=== PATIENT | male | born 1985 | race Caucasian/White ===

== ENCOUNTER 2019-05-18 16:43 | Emergency (ER) | payer SELFPAY ==
[2019-05-18 16:50] VITALS: BP 160/110; PULSE 106; RESP 16; TEMP 37.1; O2SAT 95; BMI 40.0
--- NOTE | 2019-05-18 17:01 | ED_ITS ---
HPI - Skin/Abscess/Foreign Bdy General: Chief complaint: Skin/Abscess/Foreign Body Stated complaint: knot on neck Time Seen by Provider: 05/18/19 16:55 History of Present Illness: HPI narrative: 33 yo female presents with a abscess inferior aspect of the occiput on the left is been there for over a week his had been manipulating and some continues to grow in size and tenderness I have gotten some drainage from it he denies any fever sweats or chills MD complaint: abscess/boil Associated symptoms: Deny chills, fever(s), nausea or vomiting Review of Systems Const: Denies: fever, chills, body aches, change in appetite, fatigue or malaise ENMT: Denies: throat pain, ear pain, nasal discharge or nasal congestion Card: Denies: chest pain, edema, shortness of breath on exertion or shortness of breath when lying down Resp: Denies: shortness of breath, productive cough or non-productive cough GI: Denies: abdominal pain, nausea, vomiting, vomiting blood, coffee grounds in vomit, diarrhea, constipation, bloating, blood in stool or black tarry stool : Denies: flank pain, painful urination, urinary frequency or urinary urgency Skin/Breast: Denies: rash or itching PFSH ED PFSH: Social History Smoking and tobacco status: current every day smoker Physical Exam Const: COMMON NORMALS: no apparent distress GENERAL APPEARANCE: cooperative and comfortable ORIENTATION/CONSCIOUSNESS: Yes awake, Yes oriented to person, Yes oriented to place and Yes oriented to time HENMT: COMMON NORMALS: normocephalic, head/scalp atraumatic, hearing grossly normal bilaterally, external ears normal, EAC's normal, TM's normal bilaterally, nasal mucous membranes and turbinates normal, moist oral mucous membranes and oropharynx normal HEAD & SCALP: normocephalic and atraumatic NOSE: nasal mucous membranes and turbinates normal EXTERNAL EAR: Yes external ears normal EXTERNAL AUDITORY CANAL: EAC's normal TYMPANIC MEMBRANE: TM's normal bilaterally Eye: COMMON NORMALS: PERRL, EOMs intact bilaterally, conjunctivae normal and no scleral icterus CONJUNCTIVA: Yes conjunctivae normal PUPIL: Yes PERRL Neck/C-Spine: COMMON NORMALS: full ROM, no lymphadenopathy, supple and no JVD Lymph: LYMPHATIC: no lymphadenopathy noted and no lymphedema noted Resp: COMMON NORMALS: normal respiratory effort, no retractions, no use of accessory muscles and clear to auscultation bilaterally AUSCULTATION: clear to auscultation bilaterally Cardio: COMMON NORMALS: no JVD, regular rate, regular rhythm and no murmurs RATE: regular rate RHYTHM: regular rhythm GI: COMMON NORMALS: soft to palpation and no hepatosplenomegaly AUSCULTATION: Yes normoactive bowel sounds PALPATION: Yes soft, No tender, No guarding and Yes no hepatosplenomegaly Extremity: COMMON NORMALS: normal to inspection, normal capillary refill, no clubbing, cyanosis or edema, no calf tenderness and no pedal edema Neuro: SENSORIUM/ORIENTATION: Yes oriented to person, Yes oriented to place and Yes oriented to time Skin: OTHER: Tender abscess at the base of the occiput on the left. No pointing no drainage Procedures Abscess I/D Site: scalp Side (if applicable): left Local Anesthetic: lidocaine 1% and with epi Amount of anesthesia used (mL): 2 Technique: incised with #11 blade Amount of fluid expressed (mL): 3 Irrigation: No Packing used?: none Course Vital Signs: Vital signs: Vital Signs Temperature 98.7 F 05/18/19 16:50 Pulse Rate 95 05/18/19 17:55 Respiratory Rate 14 05/18/19 17:55 Blood Pressure 134/80 05/18/19 17:55 Pulse Oximetry 100 05/18/19 17:55 MDM - Skin/Abscess/Foreign Bdy MDM Narrative: Medical decision making narrative: Wound anesthetized incised and drained was able to get moderate amount of fluid from it there was some septations within the abscess which were broken up with a cotton swab and increase the drainage a bit wound care instructions given started on Bactrim follow-up as needed Discharge Plan Discharge Patient Disposition: Home, Self-Care Clinical Impression: Abscess Condition: Stable Prescriptions: New Bactrim DS 800-160 mg tablet 1 tab PO BID 7 Days Qty: 14 RF: 0 No Action ibuprofen 800 mg Tablet 800 mg PO Q6H PRN (Reason: Pain) RF: 0 Discharge Orders: Discharge Order (Routine); Ordered 05/18/19 Ordered By: Holger Up Discharge Diet: Usual diet Discharge Activity: Resume usual activity Patient Instructions: Abscess Incision and Drainage (ED) Activity Restrictions/Additional Instructions: Return if worsens or have further problems Discharge Date/Time: 05/18/19 18:05 Coding Level of Care Code ED [employer] for Osvaldo Liu
[2019-05-18] MEDS: neomycin-poly-bacitracin oint 0.9 gm Pkt 1 APPLIC TOPICAL (17:54)
[2019-05-18 17:55] VITALS: BP 134/80; PULSE 95; RESP 14; O2SAT 100
== END 2019-05-18 18:05 | disposition home or self-care (01) ==
PROVIDERS: Emergency Provider Family Medicine
DX: L02.811 Cutaneous abscess of head [any part, except face] (principal); F17.200 Nicotine dependence, unspecified, uncomplicated
CPT/HCPCS: 10060; 12345; 99281; 99282

== ENCOUNTER 2019-05-22 10:58 | Emergency (ER) | payer SELFPAY ==
[2019-05-22 11:14] VITALS: BP 143/89; PULSE 90; RESP 18; TEMP 36.8; O2SAT 96; BMI 38.9
--- NOTE | 2019-05-22 11:36 | ED_ITS ---
HPI - Male Genitourinary General: Chief complaint: Urogenital-Male Stated complaint: Genital pain Time Seen by Provider: 05/22/19 11:17 Source: patient Mode of arrival: ambulatory Limitations: no limitations History of Present Illness: HPI Narrative: Patient is a very nice 33-year-old male who presents to ED today with complaints of a genital herpes outbreak. He began noticing the rash a few days ago. Patient has recently been treated for an abscess with antibiotics. Patient does have a history of genital herpes. Reports he had a few leftover acyclovir that he has been taking and has already noticed a difference however is out of this medication now. He states rash started with fluid-filled vesicles that have now ruptured and ulcerated. States he is extremely uncomfortable due to the pain. MD Complaint: other (HSV outbreak) Onset (ago): day(s) Duration: constant Location: penis, right testicle and left testicle Quality: burning Relieving factors: none Context: new medication (abx for abscess) Associated symptoms: Reports no associated symptoms; Deny dysuria, nausea or vomiting Related Data: Sexually active: Yes (monogamous with ) Review of Systems General: Reports: 10 or more systems reviewed and unremarkable except in HPI and below Const: Denies: fever, chills, body aches, fatigue or malaise ENMT: Denies: throat pain, enlarged tonsils, painful swallowing or oral sores/lesions Resp: Denies: shortness of breath, productive cough, non-productive cough or chest congestion GI: Denies: abdominal pain, nausea, vomiting or diarrhea : Reports: other (rash to genitalia ); Denies: flank pain, difficulty urinating, painful urination, urinary frequency, urinary urgency or urinary hesitancy Musc: Denies: neck pain or back pain Skin/Breast: Reports: rash Neuro: Denies: headache, numbness in extremities, weakness in extremities or changes in sensation PFSH ED PFSH: Social History Smoking and tobacco status: current every day smoker Physical Exam Const: COMMON NORMALS: no apparent distress, oriented x3, no limitations and alert NUTRITIONAL APPEARANCE: obese : OTHER: pt has multiple ruptured vesicles with ulcerations and edema around glans, coronal sulcus, and penile shaft Neuro: COMMON NORMALS: oriented x3 SENSORIUM/ORIENTATION: Yes alert Skin: OTHER: see assessment Course Vital Signs: Vital signs: Vital Signs Temperature 98.2 F 05/22/19 11:14 Pulse Rate 90 05/22/19 11:14 Respiratory Rate 18 05/22/19 11:14 Blood Pressure 143/89 05/22/19 11:14 Pulse Oximetry 96 05/22/19 11:14 Discharge Plan Discharge Patient Disposition: Home, Self-Care Clinical Impression: Genital herpes in men Condition: Stable Prescriptions: New Valtrex 1 gram tablet 1,000 mg PO DAILY 5 Days Qty: 5 RF: 2 tramadol 50 mg tablet 50 mg PO Q6H PRN (Reason: pain) Qty: 14 RF: 0 No Action ibuprofen 800 mg Tablet 800 mg PO Q6H PRN (Reason: Pain) RF: 0 Bactrim DS 800-160 mg tablet 1 tab PO BID 7 Days Qty: 14 RF: 0 Discharge Orders: Discharge Order (Routine); Ordered 05/22/19 Ordered By: Monique Bingham Discharge Diet: Usual diet Discharge Activity: Increase activity as tolerated Patient Instructions: Genital Herpes - Male Coding Level of Care Code ED [employer] for Osvaldo Liu
== END 2019-05-22 11:59 | disposition home or self-care (01) ==
LOC: ER 14:50
PROVIDERS: Emergency Provider Physician Assistant
DX: A60.00 Herpesviral infection of urogenital system, unspecified (principal); F17.200 Nicotine dependence, unspecified, uncomplicated
CPT/HCPCS: 12345; 99281

== ENCOUNTER → 2020-09-11 09:31 | Outpatient (BNVA) | payer MEDICAID, SELFPAY | PROVIDERS: PCP Family Medicine; Visit Provider Nurse Practitioner Family | DX: R05 Cough (principal); Z20.822 Contact with and (suspected) exposure to COVID-19; A60.02 Herpesviral infection of other male genital organs | CPT/HCPCS: 87635 ==

== ENCOUNTER 2020-11-12 08:33 | Outpatient (CLI) | payer MEDICAID, SELFPAY ==
--- NOTE | 2020-11-12 09:30 | US_ITS ---
WS: [id number] RIGHT UPPER QUADRANT ULTRASOUND HISTORY: R10.11 - Right upper quadrant pain COMPARISON: None available. Liver: 15.6 cm in length. Normal size liver with coarse echotexture throughout. Obscuration of the po rtal triads and veins. No mass or bile duct dilatation. Gallbladder: Normally distended gallbladder with no stones or wall thickening. CBD: 0.3 cm Pancreas: Poorly visualized. Tail and head are obscured by bowel gas. Right kidney: 12.6 cm in length. Normal size and echogenicity. No hydronephrosis or mass. Aorta and IVC: Unremarkable abdominal aorta and IVC. No ascites. US/US gall bladder [id number] IMPRESSION: 1. Normal gallbladder. 2. Normal size liver with moderate hepatic steatosis.
== END 2020-11-12 08:34 | disposition home or self-care (01) ==
LOC: US 08:36
PROVIDERS: PCP Family Medicine; Visit Provider Surgery
DX: R10.11 Right upper quadrant pain (principal); K83.1 Obstruction of bile duct
CPT/HCPCS: 76705

== ENCOUNTER 2020-11-20 05:22 | Day surgery (SDC) | payer MEDICAID, SELFPAY ==
[2020-11-15 12:03] VITALS: BMI 38.5
[2020-11-20 06:12] VITALS: BP 125/78; PULSE 95; RESP 18; TEMP 36.3; O2SAT 96
[2020-11-20] MEDS: sodium chloride 0.9% 1,000 ML 30 ML IV (06:23)
--- NOTE | 2020-11-20 06:23 | W.PM.OPSUD ---
Surgery/Procedure H&P Update DATE OF PROCEDURE: November 20, 2020 DATE H&P PERFORMED: 11/13/20 H&P UPDATE INFORMATION: I have reviewed H&P completed within last 30 days, I have examined patient prior to procedure and Changes to prior documentation as noted here CHANGES TO PREVIOUS DOCUMENTATION: Patient was reeducated about the importance to obtain a HIDA scan and also a small bowel follow-through has been ordered. PREOP DIAGNOSIS: Abdominal pain PRIMARY INDICATION FOR PROCEDURE: The same PLANNED PROCEDURE: Operation Date: 11/20/20 07:00 Proposed Procedures p EGD/Colon 84088 K21.9(Not Applicable) - Jose Theodore MD s Colonoscopy 21970 R10.9(Not Applicable) - Jose Theodore MD
--- NOTE | 2020-11-20 06:42 | ANES.PREANE2 ---
Pre-Anesthetic Assessment Pre-Anesthetic Assessment: Height/Weight: Height 1.85 m Weight 132.449 kg Temp Pulse Resp BP Pulse Ox 97.3 F L 95 18 125/78 96 11/20/20 06:12 11/20/20 06:12 11/20/20 06:12 11/20/20 06:12 11/20/20 06:12 Preop Diagnosis: Abdominal pain Proposed Procedure: Operation Date: 11/20/20 07:00 Proposed Procedures p EGD/Colon 85847 K21.9(Not Applicable) - Jose Theodore MD s Colonoscopy 67281 R10.9(Not Applicable) - Jose Theodore MD Familial anesthetic complications: none Was Beta Renu taken within 24 hours: N/A Was Clonidine taken within 24 hours: N/A Last intake: Intake Last Liquid Date 11/19/20 Last Liquid Time 22:00 Last Solid Date 11/18/20 Last Solid Time 19:00 Social: Social History: Alcohol (rare) and Tobacco Exam: Pre-Anes Outpt Exam: alert, No oriented x 3 and No clear to auscultation bilaterally Airway: Submandibular: WNL Cervical ROM: WNL MP: 2 Dentition: Full History/ROS: No significant history except as noted Pulmonary: Pulmonary: None reported CV/HEM: CV/HEM: None reported : : None reported Hepatic: Hepatic: Hepatitis GI: GI: GERD Metabolic: Metabolic: Hyperlipidemia Musc/skel: Musc/skel: None reported Neuropsych: Neuropsych: Anxiety, Depression and TIA Anesthetic Plan: ASA status: 3 Anesthesia: Anesthesia Evaluation and MAC Risk of > 500 ml blood loss (7ml/kg in children): No Meds/Allergies Current Medications: Current Medications Generic Name Dose Route Start Last Admin Trade Name Freq PRN Reason Stop Dose Admin Sodium Chloride 1,000 mls @ 30 ml s/hr 11/20/20 06:15 11/20/20 06:23 Sodium Chloride 0.9% IV 11/21/20 06:14 30 mls/hr .Q24H KIA Administration PFSH Anesthesia PFSH: Medical History Genital herpes in men Hepatitis C Data Anesthesia Cardiac Studies: No Data to Display
[2020-11-20 07:20] VITALS: BP 102/75; PULSE 92; RESP 18; TEMP 36.5; O2SAT 90
[2020-11-20 07:32] VITALS: BP 103/78; PULSE 84; RESP 18; TEMP 36.3; O2SAT 94
[2020-11-20 07:43] VITALS: BP 125/83; PULSE 85; RESP 18; O2SAT 94
--- NOTE | 2020-11-20 08:01 | ANE.PACU2 ---
Inpatient post-anesthesia follow up: Airway intact: Yes Vital signs: Temperature 97.3 F Pulse Rate 85 Respiratory Rate 18 Blood Pressure 125/83 Pulse Oximetry 94 Oxygen Delivery Me thod Room Air Oxygen Flow Rate 4 Fraction of Inspir ed Oxygen Hydration adequate: Yes Nausea and vomiting: No Mental status: Baseline
[2020-11-21 05:52] LABS: H. Pylori / CLO Test Negative
== END 2020-11-20 08:03 | disposition home or self-care (01) ==
PROVIDERS: PCP Nurse Practitioner Family; Visit Provider Surgery
PROC: 0DJ08ZZ Inspection of Upper Intestinal Tract, Via Natural or Artificial Opening Endoscopic (ICD-10-PCS; CPT 43235; principal; 2020-11-20 07:00)
PROC: 0DJD8ZZ Inspection of Lower Intestinal Tract, Via Natural or Artificial Opening Endoscopic (ICD-10-PCS; CPT 45378; 2020-11-20 07:00)
DX: R10.9 Unspecified abdominal pain (principal); K21.00 Gastro-esophageal reflux disease with esophagitis, without bleeding; K29.70 Gastritis, unspecified, without bleeding; Z86.19 Personal history of other infectious and parasitic diseases
CPT/HCPCS: 43239; 45378; 82274; 83630; 87077; 87493; 87506; 88305; 96360; J2704; J7030

== ENCOUNTER 2020-12-04 06:31 | Outpatient (CLI) | payer MEDICAID, SELFPAY ==
--- NOTE | 2020-12-04 08:00 | NM_ITS ---
WS: [id number] NUCLEAR MEDICINE HIDA SCAN CLINICAL INFORMATION: R10.9 - Unspecified abdominal pain TECHNIQUE: Following intravenous administration of 4.9 mCi of technetium 99m mebrofenin, images of th e abdomen were obtained over the course of 60 minutes. Next, gallbladder ejection fraction was determ ined by obtaining preprandial and one-hour postprandial images of the gallbladder following oral sangeeta stion of Ensure. FINDINGS: Normal hepatic uptake at 5 minutes. Hepatomegaly. Gallbladder is visualized by 10 minutes. No evidenc e of acute cholecystitis. Normal small bowel activity. Normal common bile duct activity. Gallbladder ejection fraction 86% with in normal limits. No evidence of chronic cholecystitis. NM/NM hepatobiliary w phar* [id number] IMPRESSION: 1. No evidence of acute or chronic cholecystitis. 2. Gallbladder ejection fraction 86% within normal limits.
== END 2020-12-04 06:32 | disposition home or self-care (01) ==
LOC: NM 06:33
PROVIDERS: PCP Nurse Practitioner Family; Visit Provider Surgery
DX: R10.9 Unspecified abdominal pain (principal)
CPT/HCPCS: 78227; 87635; A9537

== ENCOUNTER 2020-12-11 08:05 | Outpatient (CLI) | payer MEDICAID, SELFPAY ==
--- NOTE | 2020-12-11 08:30 | FL_ITS ---
WS: [id number] SMALL BOWEL EXAMINATION CLINICAL INFORMATION: K29.70 - Gastritis, unspecified, without bleeding COMPARISON: None. FINDINGS: Initial abdomen radiograph: Normal bowel gas pattern. No abnormal calcification. Contrast material: 50/50 thin barium sulfate suspension. Transit time: 30-40 Minutes (normal = 30 - 240 minutes) Rapid small bowel transit time at the lower end of the normal range. Thickening of the gastric rugae consistent with gastritis. Normal duodenal C-loop. No small bowel stricture, adhesion, or obstructing mass. Normal ileocecal valve. Terminal ileum appears normal. A few incidental jejunal diverticuli la rgest measuring 2.2 cm FLUOROSCOPY TIME: 1.3 minutes FL/FL small bowel series* [id number] IMPRESSION: 1. Rapid small bowel transit time 30 to 40 minutes at the lower end of the ran ge. 2. No evidence of small bowel stricture or obstructing mass. 3. Thickening of the gastric rugae consistent with gastritis. 4. Normal ileocecal valve and terminal ileum. 5. A few incidental jejunal diverticuli
== END 2020-12-11 08:06 | disposition home or self-care (01) ==
PROVIDERS: PCP Nurse Practitioner Family; Visit Provider Surgery
DX: K29.70 Gastritis, unspecified, without bleeding (principal); K57.10 Diverticulosis of small intestine without perforation or abscess without bleeding
CPT/HCPCS: 74250